=== PATIENT | male | born 1955 | race African-American/Black ===

== ENCOUNTER 2019-04-25 08:43 | Emergency (ER) | payer MEDICARE | END 2019-04-25 10:56 | disposition home or self-care (01) | LOC: ERS 08:43 | DX: J06.9 Acute upper respiratory infection, unspecified (principal) | CPT/HCPCS: 99283 ==

== ENCOUNTER 2019-06-03 08:30 | Inpatient (IN) | payer MEDICARE ==
[2019-06-03 09:35] LABS: Hemoglobin 17.9 g/dL (14.0-18.0); Mean Corpuscular HGB CONC 31.8 g/dL (32.0-36.0); Mean Corpuscular Hemoglobin 31.8 pg (27.0-31.0); Mean Platelet Volume 8.4 fL (7.4-10.4); Platelet Count 121 thou/uL (130-400); RBC Distribution Width 13.4 % (11.5-14.5); Red Blood Cell (RBC) Count 5.62 mill/uL (4.70-6.10); White Blood Cell (WBC) Count 15.5 thou/uL (4.8-10.8)
[2019-06-03 10:04] LABS: Calcium 10.1 mg/dL (7.8-10.44); Chloride 97 mmol/L (98-107); Potassium 5.2 mmol/L (3.5-5.1); Sodium 133 mmol/L (136-145)
[2019-06-03 10:06] LABS: Band 1 % (5-11); Lymphocytes 10 % (21-51); MDiff Complete? YES; Monocytes 5 % (0-10); Neutrophil 84 % (42-75); RBC Morphology Normal
[2019-06-03 10:17] LABS: Albumin 4.5 g/dL (3.4-4.8)
[2019-06-03 10:20] LABS: Globulin 3.8 g/dL (2.4-3.5); Glucose 94 mg/dL (80-115); Protein, Total 8.3 g/dL (5.8-8.1)
[2019-06-03 10:21] LABS: Carbon Dioxide 25 mmol/L (23-31)
[2019-06-03 10:22] LABS: Bilirubin, Total 1.4 mg/dL (0.2-1.2)
[2019-06-03 10:23] LABS: Alkaline Phosphatase 107 U/L (40-110); Calc. Creatinine Clearance 0 mL/min (70-130); Estimated GFR-MDRD 75
[2019-06-03 10:24] LABS: BUN (Urea Nitrogen) 14 mg/dL (8.4-25.7)
[2019-06-03 10:25] LABS: AST (SGOT) 67 U/L (5-34)
[2019-06-03 10:26] LABS: ALT (SGPT) 33 U/L (8-55); CK (CPK) 399 U/L (30-200); Lipase 15 U/L (8-78)
[2019-06-03 10:33] LABS: Anion Gap 16 mmol/L (10-20)
[2019-06-03] MEDS ORDERED: Iopamidol 370 76% 50 ML VIAL FS ONE (10:40)
[2019-06-03] MEDS ORDERED: Iopamidol-370 76% 500 ML 1 ML ONE (10:40)
[2019-06-03] MEDS ORDERED: Ondansetron PF 4 MG/2 ML Vial ONE (12:06)
[2019-06-03 12:39] LABS: Lactic Acid 3.1 mmol/L (0.5-2.2)
[2019-06-03] MEDS ORDERED: Piperacillin/Tazobactam 4.5 GM VIAL ONE (13:13)
[2019-06-03] MEDS ORDERED: Sodium Chloride 0.9% 100 ML ONE ×2 (13:13→14:58)
--- NOTE | 2019-06-03 14:12 | CT ---
CT Appendix Protocol: 06/03/2019 11:35 AM CLINICAL INFORMATION: Right lower quadrant abdominal pain for 2 days COMPARISON: None. TECHNIQUE: Multiple contiguous axial images were obtained and a CT of the abdomen and pelvis with IV contrast. Oral contrast was administered. Coronal and sagittal reformats were performed. FINDINGS: Lower Chest: within normal limits. Abdomen: Liver: within normal limits. Bile Ducts: Normal caliber. Gallbladder: No calcified gallstones. Normal caliber wall. Pancreas: within normal limits. Spleen: within normal limits. Adrenals: within normal limits. Kidneys: Both kidneys demonstrate abnormal enhancement. Stranding changes seen adjacent to both kidne ys. The biggest area of abnormal enhancement is in the lower pole of the right kidney. Enhancement pattern has a slightly tiger stripe appearance. Pelvis: Reproductive Organs: No pelvic masses. Ureters: within normal limits. Bladder: within normal limits. Peritoneum: No ascites or free air, no fluid collection. Bowel: Normal caliber. Normal appendix. Mesentery and Retroperitoneum: No enlarged mesenteric or retroperitoneal lymph nodes. Vessels: Atherosclerotic calcifications in the aorta. No significant atherosclerotic calcifications a re seen in the renal arteries. Abdominal Wall: within normal limits. Bones: Degenerative changes in the spine. IMPRESSION: Likely bilateral pyelonephritis, right greater than left. Correlate with urinalysis. Alternatively, t his could represent bilateral multifocal renal infarctions.
--- NOTE | 2019-06-03 14:22 | RAD ---
EXAM: Single view of the chest HISTORY: Cough COMPARISON: None FINDINGS: Single view of the chest shows a normal sized cardiomediastinal silhouette. There is left h ilar opacity. No pleural effusion is seen. The bones are unremarkable. IMPRESSION: Left hilar infiltrate
[2019-06-03 14:29] LABS: Bilirubin Negative (Negative); Blood, Urine Trace (Negative); Clarity Clear (Clear); Glucose, Urine (Dipstick) Normal (Negative); Leukocyte 500 Leu/uL (Negative); Nitrite Negative (Negative); Protein, Urine (Dipstick) 30 mg/dL (Neg-Trace); Squamous Epithelial 0-3 HPF (0-3); Urobilinogen Normal mg/dL (Less than 2); WBC/HPF Greater than 50 HPF (0-3)
[2019-06-03 14:40] LABS: Bacteria/HPF None Seen HPF (None Seen)
--- NOTE | 2019-06-03 14:57 | PDOC.FPRHP ---
- History of Present Illness Chief Complaint: Abdominal pain History of Present Illness: 63 yo M presented to ED for complaint of abdominal pain. Pain started 3 days ago , was suprapubic and achy. States this continually has progressed through today. Was associated with one episode of emesis 2 days ago and chills last night. Denies any past medical history and states he has not seen a doctor in many years. Pt does note a cough but states it is chronic. Denies any SOB, CP, dysuria, diarrhea, or fevers. He does note some increased constipation sx and having to strain to pass stools. Describes his urine as appearing very yellow and almost orange recently. ED Course: CXR and abdominal CT. Received 2L NS bolus, Zosyn, Rocephin, and Azithro. - Allergies/Adverse Reactions Allergies Allergy/AdvReac Type Severity Reaction Status Date / Time No Known Allergies Allergy Unverified 06/03/19 15:27 - History PMHx: No known PMHx PSHx: None FHx: No known FMHx Social: 1ppd smoker for >30 years. Drinks a six pack of beer daily. Denies any illicit drug use. - Review of Systems General: reports: fever/chills, weight/appetite/sleep changes Eyes: denies: vision changes, other ENT: denies: nasal congestion, rhinorrhea Respiratory: reports: cough (chronic). denies: congestion, shortness of breath Cardiovascular: denies: chest pain, palpitation, edema Gastrointestinal: reports: vomiting, constipation, abdominal pain. denies: nausea, diarrhea, GI bleeding Genitourinary: denies: incontinence, dysuria, polyuria Skin: denies: rashes, lesions Musculoskeletal: denies: pain, tenderness Neurological: denies: numbness, weakness Psychological: denies: depression, other - Vital signs BP: 131/82, MAP: 98, Pulse: 86, Resp: 18, Temp: 97.7 (Oral), Pain: 2, O2 sat: 99 on (Room Air), Wt: 62kg - Physical Exam Constitutional: NAD, awake, alert and oriented HEENT: EOMI, grossly normal hearing, MMM -HEENT: Hazy appearing cornea, poor dentition Neck: supple Heart: RRR, normal S1/S2, no murmurs/rubs/gallops Lungs: no respiratory distress, no wheezing -Lungs: Diminished breath sounds in mid nayak bilaterally, course breath sounds in remaining nayak Abdomen: soft, bowel sounds present, no masses/distention -Abdomen: Suprapubic tenderness, no peritoneal signs Musculoskeletal: normal structure, normal tone, ROM grossly normal -Musculoskeletal: Bilateral CVA tenderness Neurological: no focal deficit, CN II-XII intact Skin: no rash/lesions -Skin: Lipoma to left CVA Heme/Lymphatic: no unusual bruising or bleeding, no purpura Psychiatric: normal mood and affect, good judgment and insight, intact recent and remote memory FMR H&P: Results - Labs Result Diagrams: 06/03/19 09:22 06/03/19 09:22 Lab results: WBC 15.5 thou/uL (4.8-10.8) H 06/03/19 09:22 Hgb 17.9 g/dL (14.0-18.0) 06/03/19 09:22 Hct 56.3 % (42.0-52.0) H 06/03/19 09:22 MCV 100.0 fL (78.0-98.0) H 06/03/19 09:22 Plt Count 121 thou/uL (130-400) L 06/03/19 09:22 Band Neuts % (Manual) 1 % (5-11) L 06/03/19 09:22 Sodium 133 mmol/L (136-145) L 06/03/19 09:22 Potassium 5.2 mmol/L (3.5-5.1) H 06/03/19 09:22 Chloride 97 mmol/L (98-107) L 06/03/19 09:22 Carbon Dioxide 25 mmol/L (23-31) 06/03/19 09:22 BUN 14 mg/dL (8.4-25.7) 06/03/19 09:22 Creatinine 1.19 mg/dL (0.7-1.3) 06/03/19 09:22 Glucose 94 mg/dL (80-115) 06/03/19 09:22 Lactic Acid 3.1 mmol/L (0.5-2.2) H 06/03/19 12:14 Calcium 10.1 mg/dL (7.8-10.44) 06/03/19 09:22 Total Bilirubin 1.4 mg/dL (0.2-1.2) H 06/03/19 09:22 AST 67 U/L (5-34) H 06/03/19 09:22 ALT 33 U/L (8-55) 06/03/19 09:22 Alkaline Phosphatase 107 U/L (40-110) 06/03/19 09:22 Creatine Kinase 399 U/L (30-200) H 06/03/19 09:22 Serum Total Protein 8.3 g/dL (5.8-8.1) H 06/03/19 09:22 Albumin 4.5 g/dL (3.4-4.8) 06/03/19 09:22 Lipase 15 U/L (8-78) 06/03/19 09:22 Urine Ketones Negative mg/dL (Negative) 06/03/19 14:12 Urine Blood Trace (Negative) A 06/03/19 14:12 Urine Nitrite Negative (Negative) 06/03/19 14:12 Ur Leukocyte Esterase 500 Miek/uL (Negative) A 06/03/19 14:12 Urine RBC 4-6 HPF (0-3) A 06/03/19 14:12 Urine WBC Greater than 50 HPF (0-3) A 06/03/19 14:12 Ur Squamous Epith Cells 0-3 HPF (0-3) 06/03/19 14:12 Urine Bacteria None Seen HPF (None Seen) 06/03/19 14:12 - Radiology Interpretation Chest x-ray Status: report reviewed by me (left hilar infiltrate) CT scan - abdomen Status: report reviewed by me (Likely bilateral pyelonephritis, right greater than left. Correlate with urinalysis. Alternatively, t his could represent bilateral multifocal renal infarctions.) FMR H&P: A/P - Problem List (1) Pyelonephritis Current Visit: Yes Status: Acute Code(s): N12 - TUBULO-INTERSTITIAL NEPHRITIS, NOT SPCF ACUTE OR CHRONIC (2) Sepsis Current Visit: Yes Status: Acute Code(s): A41.9 - SEPSIS, UNSPECIFIED ORGANISM Qualifiers: Sepsis type: sepsis due to unspecified organism Sepsis acute organ dysfunction status: without acute organ dysfunction Qualified Code(s): A41.9 - Sepsis, unspecified organism (3) Hyperkalemia Current Visit: Yes Status: Acute Code(s): E87.5 - HYPERKALEMIA (4) Hyponatremia Current Visit: Yes Status: Acute Code(s): E87.1 - HYPO-OSMOLALITY AND HYPONATREMIA (5) Lactic acidemia Current Visit: Yes Status: Acute Code(s): E87.2 - ACIDOSIS (6) Elevated blood pressure reading Current Visit: Yes Status: Acute Code(s): R03.0 - ELEVATED BLOOD-PRESSURE READING, W/O DIAGNOSIS OF HTN (7) Alcohol abuse Current Visit: Yes Status: Chronic Code(s): F10.10 - ALCOHOL ABUSE, UNCOMPLICATED (8) Community acquired pneumonia Current Visit: Yes Status: Acute Code(s): J18.9 - PNEUMONIA, UNSPECIFIED ORGANISM Qualifiers: Laterality: left Lung location: upper lobe of lung Qualified Code(s): J18.9 - Pneumonia, unspecified organism (9) Tobacco abuse disorder Current Visit: Yes Status: Chronic Code(s): Z72.0 - TOBACCO USE - Plan Pyelonephritis with sepsis - bilateral - Met septic criteria upon presentation, resolved after fluid resuscitation, will continue to monitor - CT called bilateral, worse on right, consistent with UA - also noted cannot rule out multifocal infarction, non consistent with clinical presentation, will monitor - IVF LR @ 100 - Strict I/O - Urine and blood cultures pending - IV Rocephin 2g daily Community Acquired Pneumonia - CXR with left hilar infiltrate - Azithro 500 x3 d - Not requiring O2 Hyperkalemia - K+: 5.2 - IVF - Trend AM CMP Hyponatremia - Na: 133 - Likely 2/2 beer potomania - IVF - Trend AM CMP Lactic Acidemia - IVF and Abx - Trend Thrombocytopenia and Transaminitis - Likely 2/2 alcohol abuse Alcohol and Tobacco Abuse - [place] on cessation Elevated blood pressure reading - Monitor and tx accordingly - No severe range pressures currently IVF: LR @ 100 Diet: Regular Code: Full VTE: Lovenox Dispo: Admit in medical for IVF and IV abx. ELOS >48hr. PCP: No doc FMR H&P: Upper Level - Plan Date/Time: 06/03/19 2097 ITeddy MD, have evaluated this patient and agree with findings/ plan as outlined by internet e commerce specialist resident. Pertinent changes/additions are listed here. Sepsis 2/2 to Bilateral Pyelonephritis/CAP - Continue Rocephin - Urine culture pending - Consider CTA to investigate possible renal infarctions - Will continue Azithromycin and Rocephin - Likely component of undiagnosed COPD from tobacco abuse - Duonebs as needed Lactic Acidosis - 2.5 on presentation, trended to 3.1 - s/p 2L NS in ED - Continue IVF Hyperkalemia - 5.2 on admission - Trend in AM Elevated AST - Likely secondary to alcohol abuse - Recommend cessation - Trend in AM - Consider hepatitis testing Hyponatremia - Likely Beer potomania - Trend in AM Elevated CK - Not Rhabdomyolysis range - IVF - Recheck in AM PCP: NONE - CC CODE STATUS: FULL CODE Disposition: Stable, will admit to inpatient medical services for further evaluation and treatment. Addendum - Attending - Attending Attestation Date/Time: 06/03/191807 I personally evaluated the patient and discussed the management with Dr. Newman I agree with the History, Examination, Assessment and Plan documented above with any addition or exceptions noted below -63 yo M presented to ED for complaint of suprapubic abdominal pain for last 3 days. States this continually has progressed through today. has had a few episodes of emesis and chills last night. Denies any past medical history and states he has not seen a doctor in many years. Pt does note a cough but states it is chronic. Denies any SOB, CP, dysuria, diarrhea, or fevers. Describes his urine as appearing very yellow and almost orange recently. Does report decreased appetite for last several days. Afebrile VSS Exam repeated by me and agree with resident's findings. Labs: WBC=15.5, H/H=17.9/56.3, Yyx=029, Do=731, K=5.2, Cl=97, CO2=25, BUN/Cr=14/1.19, Gluc=94, AST/ALT=67/33, lactic acid=2.4 -> 3.1 CT Abd - b/l perinephric stranding. CXR - L hilar infiltrate. A/P: 1) Sepsis secondary to pyelonephritis - Admit to medical. Continue IV abx. Blood and urine cultures pending. 2) Possible pneumonia - continue abx and will start on nebs.
[2019-06-03] MEDS ORDERED: cefTRIAXone\\ROCEPHIN 2 GM VIAL ONE (14:58)
[2019-06-03] MEDS ORDERED: Azithromycin 500 MG in Sodium Chloride 0.9% 250 ML 250 ML IVPB SCH (15:30)
[2019-06-03] MEDS ORDERED: Sodium Chloride 0.9% 1,000 ML IV SCH (19:02)
[2019-06-03] MEDS ORDERED: Acetaminophen 325 MG TAB PO PRN (20:13)
[2019-06-03] MEDS ORDERED: Ondansetron ODT 4 MG TAB PO PRN (20:13)
[2019-06-03] MEDS ORDERED: Ondansetron PF 4 MG/2 ML Vial IVP PRN (20:13)
[2019-06-03] MEDS ORDERED: Nicotine 21 MG PATCH TD PRN (21:00)
[2019-06-03 21:17] LABS: Lactic Acid 1.2 mmol/L (0.5-2.2)
[2019-06-03] MEDS: Senokot S 8.6-50 MG TAB PO SCH (22:15)
[2019-06-03] MEDS: Lactated Ringer's 1,000 ML IV SCH (22:17)
[2019-06-04 01:30] VITALS: BMI 18.5
--- NOTE | 2019-06-04 06:05 | PDOC.FM ---
- Subjective Subjective: Pt feeling better today. Abdominal pain resolved, urine looking more clear. Denies any events overnight. No fevers, chills, N/V. - Objective Vital Signs & Weight: Vital Signs (12 hours) Temp Pulse Resp BP Pulse Ox 06/04/19 03:40 98.1 F 80 20 133/84 98 06/04/19 00:14 80 16 96 06/03/19 23:52 98.0 F 79 18 138/85 97 06/03/19 20:00 98.2 F 89 20 124/81 100 Weight Weight 62 kg Result Diagrams: 06/04/19 05:53 06/04/19 05:53 Phys Exam - Physical Examination Constitutional: NAD HEENT: moist MMs, sclera anicteric Neck: full ROM Respiratory: no rales, no rhonchi, wheezing present (scattered, mild) Cardiovascular: RRR, no significant murmur Gastrointestinal: soft, non-tender, no distention, positive bowel sounds Musculoskeletal: no edema, pulses present Mild right CVA tenderness Neurological: non-focal, moves all 4 limbs Psychiatric: normal affect, A&O x 3 Skin: no rash, cap refill <2 seconds Dx/Plan (1) Pyelonephritis Code(s): N12 - TUBULO-INTERSTITIAL NEPHRITIS, NOT SPCF ACUTE OR CHRONIC Status: Acute (2) Sepsis Code(s): A41.9 - SEPSIS, UNSPECIFIED ORGANISM Status: Acute Qualifiers: Sepsis type: sepsis due to unspecified organism Sepsis acute organ dysfunction status: without acute organ dysfunction Qualified Code(s): A41.9 - Sepsis, unspecified organism (3) Hyperkalemia Code(s): E87.5 - HYPERKALEMIA Status: Acute (4) Hyponatremia Code(s): E87.1 - HYPO-OSMOLALITY AND HYPONATREMIA Status: Acute (5) Lactic acidemia Code(s): E87.2 - ACIDOSIS Status: Acute (6) Elevated blood pressure reading Code(s): R03.0 - ELEVATED BLOOD-PRESSURE READING, W/O DIAGNOSIS OF HTN Status : Acute (7) Alcohol abuse Code(s): F10.10 - ALCOHOL ABUSE, UNCOMPLICATED Status: Chronic (8) Community acquired pneumonia Code(s): J18.9 - PNEUMONIA, UNSPECIFIED ORGANISM Status: Acute Qualifiers: Laterality: left Lung location: upper lobe of lung Qualified Code(s): J18.9 - Pneumonia, unspecified organism (9) Tobacco abuse disorder Code(s): Z72.0 - TOBACCO USE Status: Chronic - Plan Plan: Pyelonephritis - bilateral - No longer septic - IVF LR @ 100 - Strict I/O - Pt has been voiding in toilet, will instruct pt and request nursing to collect - Urine and blood cultures pending - IV Rocephin 1g daily Community Acquired Pneumonia - CXR with left hilar infiltrate - Azithro 500 x3 d - Not requiring O2 Hyperkalemia - resolved - K+: 5.2 -> 4.1 - IVF - Trend AM CMP Hyponatremia - Na: 133 -> 134 - Likely 2/2 beer potomania - IVF - Trend AM CMP Lactic Acidemia - Resolved Thrombocytopenia and Transaminitis - Likely 2/2 alcohol abuse Alcohol and Tobacco Abuse - [place] on cessation Elevated blood pressure reading - Monitor and tx accordingly, currently WNL - No severe range pressures currently IVF: LR @ 100 Diet: Regular Code: Full VTE: Lovenox [facility]. ELOS 1-2 days. PCP: No doc Addendum - Attending - Attending Attestation Date/Time: 06/04/19 1218 I personally evaluated the patient at 0705 am and discussed the management with Dr. Newman. I agree with the History, Examination, Assessment and Plan documented above with any addition or exceptions noted below. Presumed pyelonephritis- continue IV rocephin and await urine and blood cx. If negative will consider other etiologies of renal findings. CAP- Rocephin and azithromycin Thrombocytopenia- plts 90- could be due to sepsis or from etoh abuse. trend daily
[2019-06-04 06:36] LABS: Hemoglobin 14.2 g/dL (14.0-18.0); Lymphocytes 14 % (21-51); MDiff Complete? YES; Mean Corpuscular HGB CONC 33.4 g/dL (32.0-36.0); Mean Corpuscular Hemoglobin 32.1 pg (27.0-31.0); Mean Platelet Volume 8.7 fL (7.4-10.4); Monocytes 6 % (0-10); Neutrophil 80 % (42-75); Nucleated RBC 1 % (0); Platelet Count 90 thou/uL (130-400); Platelet Morphology Comment Appears Decreased; Red Blood Cell (RBC) Count 4.44 mill/uL (4.70-6.10); White Blood Cell (WBC) Count 12.2 thou/uL (4.8-10.8)
[2019-06-04 06:37] LABS: ALT (SGPT) 33 U/L (8-55); AST (SGOT) 58 U/L (5-34); Albumin 3.4 g/dL (3.4-4.8); Alkaline Phosphatase 82 U/L (40-110); Anion Gap 12 mmol/L (10-20); BUN (Urea Nitrogen) 11 mg/dL (8.4-25.7); Bilirubin, Total 0.9 mg/dL (0.2-1.2); Calc. Creatinine Clearance 63 mL/min (70-130); Calcium 8.7 mg/dL (7.8-10.44); Carbon Dioxide 23 mmol/L (23-31); Chloride 103 mmol/L (98-107); Estimated GFR-MDRD 84; Globulin 3.1 g/dL (2.4-3.5); Glucose 96 mg/dL (80-115); Potassium 4.1 mmol/L (3.5-5.1); Protein, Total 6.5 g/dL (5.8-8.1); Sodium 134 mmol/L (136-145)
[2019-06-04] MEDS: Lactated Ringer's 1,000 ML IV SCH ×2 (07:04→16:30)
[2019-06-04] MEDS: Senokot S 8.6-50 MG TAB PO SCH ×2 (08:15→20:19)
[2019-06-04] MEDS ORDERED: Enoxaparin Sodium 40 MG/0.4 ML SYRINGE SC SCH (09:00)
[2019-06-04] MEDS: Morphine 2 MG/ML SYRINGE SLOW IVP PRN ×2 (09:33→20:26)
[2019-06-04] MEDS ORDERED: cefTRIAXone\\ROCEPHIN 1 GM in Sodium Chloride 0.9% 100 ML IVPB SCH (15:00)
[2019-06-04] MEDS ORDERED: cefTRIAXone\\ROCEPHIN 2 GM in Sodium Chloride 0.9% 100 ML IVPB SCH (15:00)
[2019-06-04] MEDS ORDERED: Azithromycin 500 MG in Sodium Chloride 0.9% 250 ML 250 ML IVPB SCH (16:00)
[2019-06-04] MEDS ORDERED: FLU VACC QS2019-20(6MOS UP)/PF 60 MCG/0.5 ML SYRINGE IM ONE (21:00)
[2019-06-05] MEDS: Calcium Carbonate 500 MG ChewTAB PO PRN ×2 (00:24→10:36)
[2019-06-05] MEDS: Lactated Ringer's 1,000 ML IV SCH (05:29)
--- NOTE | 2019-06-05 06:21 | PDOC.FM ---
- Subjective Subjective: pt notes continued improvement in his abdominal pain. Tolerating PO intake without complication. urinating often on IVF, no dysuria. Denies any fevers or chills. No SOB or sputum production. - Objective Vital Signs & Weight: Vital Signs (12 hours) Temp Pulse Resp BP Pulse Ox 06/04/19 23:47 94 16 95 06/04/19 20:00 98.4 F 90 18 120/72 94 L 06/04/19 19:44 94 L 06/04/19 19:13 76 16 97 Weight Admit Weight 63.049 kg Weight 62 kg I&O: 06/03/19 06/04/19 06/05/19 06:59 06:59 06:59 Intake Total 1680 Balance 1680 Result Diagrams: 06/05/19 06:58 06/05/19 06:58 Phys Exam - Physical Examination Constitutional: NAD HEENT: moist MMs Mild scleral icterus and corneal opacification Neck: supple Diffuse light scattered wheezing, good air movement Cardiovascular: RRR Gastrointestinal: soft, non-tender, no distention, positive bowel sounds Musculoskeletal: no edema, pulses present Neurological: non-focal, moves all 4 limbs Psychiatric: normal affect, A&O x 3 Skin: no rash, cap refill <2 seconds Dx/Plan (1) Pyelonephritis Code(s): N12 - TUBULO-INTERSTITIAL NEPHRITIS, NOT SPCF ACUTE OR CHRONIC Status: Acute (2) Sepsis Code(s): A41.9 - SEPSIS, UNSPECIFIED ORGANISM Status: Acute Qualifiers: Sepsis type: sepsis due to unspecified organism Sepsis acute organ dysfunction status: without acute organ dysfunction Qualified Code(s): A41.9 - Sepsis, unspecified organism (3) Hyperkalemia Code(s): E87.5 - HYPERKALEMIA Status: Acute (4) Hyponatremia Code(s): E87.1 - HYPO-OSMOLALITY AND HYPONATREMIA Status: Acute (5) Lactic acidemia Code(s): E87.2 - ACIDOSIS Status: Acute (6) Elevated blood pressure reading Code(s): R03.0 - ELEVATED BLOOD-PRESSURE READING, W/O DIAGNOSIS OF HTN Status : Acute (7) Alcohol abuse Code(s): F10.10 - ALCOHOL ABUSE, UNCOMPLICATED Status: Chronic (8) Community acquired pneumonia Code(s): J18.9 - PNEUMONIA, UNSPECIFIED ORGANISM Status: Acute Qualifiers: Laterality: left Lung location: upper lobe of lung Qualified Code(s): J18.9 - Pneumonia, unspecified organism (9) Tobacco abuse disorder Code(s): Z72.0 - TOBACCO USE Status: Chronic - Plan Plan: Pyelonephritis - bilateral - IVF stopped, tolerating PO - Strict I/O - output has not been collected - Urine and blood cultures pending - prelim culture neg at 24hr - IV Rocephin 1g daily, will transition to PO after todays dose/cultures result Community Acquired Pneumonia - CXR with left hilar infiltrate - Azithro 500 x3 d, complete today - Not requiring O2 Hyperkalemia - resolved Hyponatremia - Na: 133 -> 134 - Likely 2/2 beer potomania Lactic Acidemia - Resolved Thrombocytopenia and Transaminitis - Likely 2/2 alcohol abuse and IVF dilution - lovenox stopped Alcohol and Tobacco Abuse - [place] on cessation Elevated blood pressure reading - Monitor and tx accordingly, currently WNL - No severe range pressures currently IVF: SL Diet: Regular Code: Full Dispo: Admit in medical for IVF and IV abx. ELOS 0-1 days. PCP: No doc Addendum - Attending - Attending Attestation Date/Time: 06/05/19 1406 I personally evaluated the patient at 1030 am and discussed the management with Dr. Newman I agree with the History, Examination, Assessment and Plan documented above with any addition or exceptions noted below. Presumed pyelonephritis- Dr. newman called and discussed ct results with radiologist who states it is consistent with pyelo and not infarction. Neg urine cx but improved symptoms. Will treat with omnicef to complete course. May need repeat o/p scan after treatment complete CAP- finished azithro and will complete omnicef Needs to establish with a PCP as outpatient for preventative health.
[2019-06-05 07:29] LABS: Anion Gap 14 mmol/L (10-20); BUN (Urea Nitrogen) 8 mg/dL (8.4-25.7); Calc. Creatinine Clearance 64 mL/min (70-130); Calcium 8.7 mg/dL (7.8-10.44); Carbon Dioxide 22 mmol/L (23-31); Chloride 102 mmol/L (98-107); Estimated GFR-MDRD 85; Glucose 101 mg/dL (80-115); Potassium 3.8 mmol/L (3.5-5.1); Sodium 134 mmol/L (136-145)
[2019-06-05 08:52] LABS: Hemoglobin 13.6 g/dL (14.0-18.0); Hypochromia SLIGHT = 6-15 cells (100X) (0-5/hpf); Lymphocytes 2 % (21-51); MDiff Complete? YES; Mean Corpuscular HGB CONC 33.9 g/dL (32.0-36.0); Mean Corpuscular Hemoglobin 32.6 pg (27.0-31.0); Mean Platelet Volume 8.5 fL (7.4-10.4); Monocytes 8 % (0-10); Neutrophil 90 % (42-75); Platelet Count 71 thou/uL (130-400); Platelet Morphology Comment Appears Decreased; RBC Distribution Width 12.9 % (11.5-14.5); Red Blood Cell (RBC) Count 4.18 mill/uL (4.70-6.10); Vacuoles SLIGHT; White Blood Cell (WBC) Count 14.6 thou/uL (4.8-10.8)
[2019-06-05] MEDS: Senokot S 8.6-50 MG TAB PO SCH (09:43)
[2019-06-05] MEDS ORDERED: Pantoprazole 40 MG VIAL IVP SCH (10:45)
[2019-06-05] MEDS ORDERED: Lidocaine 2% Viscous Solution 20 ML, Aluminum & Magnesium Hydroxide 30 ML, Donnatal Eli... SSW SCH (10:45)
[2019-06-05 12:08] VITALS: BP 124/77; TEMP 98.2
--- NOTE | 2019-06-06 03:32 | DIS ---
DATE OF ADMISSION: 06/03/2019 DATE OF DISCHARGE: 06/05/2019 ADMITTING ATTENDING: Bhavya Gusman MD DISCHARGE ATTENDING: Charline Levy MD RESIDENT: Ha Newman DO. CONSULTS: None. PROCEDURES: None. IMAGING: Chest x-ray; finding, left hilar infiltrate. CT appendix protocol; findings, likely bilateral pyelonephritis, right greater than left. Correlate with urinalysis. Alternatively, this could represent bilateral multifocal renal infarctions. PRIMARY DIAGNOSES: 1. Sepsis secondary to urinary tract infection/pyelonephritis. 2. Community-acquired pneumonia. SECONDARY DIAGNOSES: 1. Alcohol abuse. 2. Tobacco abuse. 3. Hyperkalemia. 4. Hyponatremia - Beer Potomania DISCHARGE MEDICATIONS: 1. Pantoprazole 40 mg daily. 2. Cefdinir 300 mg q.12 hours x14 days. HOSPITAL COURSE: A 63-year-old male presented to the ED with complaints of abdominal pain associated with suprapubic tenderness, emesis, and chills. ED workup was significant for left hilar infiltrate and urinary tract infection. The patient was found to be septic and received 2 L of normal saline, Zosyn, Rocephin, and azithromycin in the emergency department. The patient was subsequently admitted to the hospital for IV antibiotics and urine and blood cultures. Over the next 2 days, the patient's abdominal pain and CVA tenderness found on admission gradually resolved. At the time of discharge, urine and blood cultures were negative for any growth at 48 hours. I discussed with the radiologist the findings of possible renal infarction. After discussion, the radiologist felt that the patient's CT findings and clinical course were much more likely to be due to his pyelonephritis rather than renal infarction. We discussed this with the patient and recommended that he follow up as an outpatient and establish with a PCP. The patient expressed understanding and agreed with this plan of care. At the time of discharge, the patient was afebrile, tolerating p.o. intake. The patient was sent home with a week's course of his cefdinir for his pneumonia and urinary tract infection. The patient was also sent home with a prescription for pantoprazole due to epigastric pain noted during his admission that improved with PPI and GI cocktail therapy. DISCHARGE INSTRUCTIONS: Location: Home. Diet: Regular. Activity: As tolerated. Followup: Established with PCP within 7 days. Job ID: [id number] [facility]
--- NOTE | 2019-06-06 19:05 | EKG ---
Test Reason : Blood Pressure : / mmHG Vent. Rate : 099 BPM Atrial Rate : 099 BPM P-R Int : 136 ms QRS Dur : 078 ms QT Int : 334 ms P-R-T Axes : 069 034 048 degrees QTc Int : 428 ms Normal sinus rhythm Possible Left atrial enlargement Borderline ECG No previous ECGs available Confirmed by DR. Estefany JIMENEZ MD ([id number]) on 06/06/2019 7:05:13 PM Referred By: LIDIA Confirmed By:DR. Estefany JIMENEZ MD
== END 2019-06-05 12:59 | disposition home or self-care (01) | DRG 871 ==
LOC: ERS 08:30 → T4-A 19:05
PROVIDERS: ADMIT Family Medicine; ATTEND Family Medicine
DX: A41.9 Sepsis, unspecified organism (principal); J18.9 Pneumonia, unspecified organism; N12 Tubulo-interstitial nephritis, not specified as acute or chronic; E87.1 Hypo-osmolality and hyponatremia; E87.2 Acidosis; F10.10 Alcohol abuse, uncomplicated; F17.200 Nicotine dependence, unspecified, uncomplicated; E87.5 Hyperkalemia; Z28.21 Immunization not carried out because of patient refusal
CPT/HCPCS: 36415; 71045; 74177; 80048; 80053; 81003; 81015; 82550; 83605; 83690; 85025; 86850; 86900; 86901; 87040; 87086; 93005; 93010; 94640; C9113; J0456; J0500; J0696; J2270; J2405; J2543; J3490; J7050; J7620; Q9967